=== PATIENT | female | born 1965 | race Caucasian/White ===

== ENCOUNTER 2019-04-12 12:39 | Emergency (ER) | payer SELFPAY ==
[~2019-04-12] VITALS: Ht 152.4 cm; Wt 83.6 kg
[2019-04-12 13:00] LABS: GLUCOSE,POINT OF CARE 217 MG/DL (70-110)
[2019-04-12 14:08] LABS: BASOPHILS % (AUTO) 1.1 % (0.0-2.0); HEMATOCRIT 34.2 % (36-46); HEMOGLOBIN 10.8 g/dL (12.0-16.0); LYMPHOCYTES % (AUTO) 38.6 % (22.0-44.0); MEAN CORPUSCULAR HGB CONC 31.4 G/dL (31.0-37.0); MEAN CORPUSCULAR VOLUME 70 fL (80-100); MONOCYTES # (AUTO) 0.5 K/uL (0.1-1.0); MONOCYTES % (AUTO) 5.9 % (2.0-9.0); NEUTROPHILS % (AUTO) 51.4 % (40.0-70.0); PLATELET COUNT (AUTO) 331 K/uL (150-450); RED CELL DISTRIBUTION WIDTH 17.3 % (11.5-14.5)
[2019-04-12 14:20] LABS: INR 0.9 (0.9-1.1); PROTHROMBIN TIME 9.4 SEC (9.4-11.6)
[2019-04-12 14:22] LABS: PLATELET MORPHOLOGY COMMENT LARGE PLTS PRESENT
[2019-04-12 14:27] LABS: B-TYPE NATRIURETIC PEPTIDE 15 pg/mL (0-100)
[2019-04-12 14:41] LABS: ALANINE AMINOTRANSFERASE 58 U/L (12-78); ALBUMIN 3.7 g/dL (3.4-5.0); ALKALINE PHOSPHATASE 100 U/L (46-116); ANION GAP 12 mmol/L (8-16); ASPARTATE AMINOTRANSFERASE 39 U/L (15-37); BILIRUBIN,TOTAL 0.4 mg/dL (0.1-1.0); CALCIUM, TOTAL 9.4 mg/dL (8.8-10.5); CARBON DIOXIDE 23 mmol/L (22-29); CHLORIDE 99 mmol/L (98-107); CREATINE KINASE, TOTAL ONLY 81 U/L (26-192); CREATININE 0.74 mg/dL (0.60-1.30); GLOMERULAR FILTR. RATE CALC > 60 mL/min (>60); GLUCOSE,RANDOM 205 mg/dL (70-110); POTASSIUM 4.2 mmol/L (3.5-5.1); SODIUM SERUM 134 mmol/L (136-145); TOTAL PROTEIN, SERUM 7.9 g/dL (6.4-8.2)
[2019-04-12 14:47] LABS: UREA NITROGEN, BLOOD 10 mg/dL (7-18)
[2019-04-12 14:55] VITALS: BP 162/88
== END 2019-04-12 15:12 | disposition home or self-care (01) ==
LOC: EMS 12:42
DX: R07.89 Other chest pain (principal); D64.9 Anemia, unspecified; E11.65 Type 2 diabetes mellitus with hyperglycemia; E78.00 Pure hypercholesterolemia, unspecified; I10 Essential (primary) hypertension
CPT/HCPCS: 93005